=== PATIENT | male | born 1980 | race Caucasian/White ===

== ENCOUNTER 2019-04-03 19:11 | Emergency (ER) | payer OTHER ==
[2019-04-03 19:29] VITALS: TEMP 98.9
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
[2019-04-03 22:04] VITALS: BP 149/76; PULSE 84; RESP 18
== END 2019-04-03 22:03 | disposition home or self-care (01) ==
LOC: EC 19:11
DX: R45.851 Suicidal ideations (principal); F43.21 Adjustment disorder with depressed mood
CPT/HCPCS: 99285

== ENCOUNTER → 2024-07-01 | Outpatient (CLI) | payer OTHER ==
--- NOTE | 2024-07-01 15:40 | US ---
EXAMINATION TYPE: US venous doppler duplex LE DATE OF EXAM: 07/01/2024 3:28 PM COMPARISON: NONE CLINICAL INDICATION: Male, 44 years old with history of R22.42 LOCALIZED SWELLING, MASS AND LUMP, LEF T LOW; Swelling and pain in the legs. Patient does not take blood thinners. No hx of DVT. SIDE PERFORMED: Bilateral TECHNIQUE: The lower extremity deep venous system is examined utilizing real time linear array sonog hank with graded compression, doppler sonography and color-flow sonography. VESSELS IMAGED: Common Femoral Vein Deep Femoral Vein Greater Saphenous Vein * Femoral Vein Popliteal Vein Small Saphenous Vein * Proximal Calf Veins (* superficial vessels) Exam is very limited due to patient body habitus. Right Leg: No evidence of DVT, prox calf veins not well seen Left Leg: No evidence of DVT, prox calf veins not well seen IMPRESSION: [facility]ung, , 07/01/2024 3:38 PM
[2024-07-01 16:02] LABS: ABG PCO2 51 mmHg (35-45); ABG PH 7.39 (7.35-7.45); ABG PO2 62 mmHg (83-108); Allen Test Performed? Yes
[2024-07-01 16:03] LABS: ABG Base Excess 4.4 mmol/L; ABG HCO3 31 mmol/L (21-25); ABG TCO2 32 mmol/L (19-24)
== END | disposition home or self-care (01) ==
LOC: RADUSWWP 14:34
PROVIDERS: ATTEND Internal Medicine
DX: R22.42 Localized swelling, mass and lump, left lower limb (principal); R22.41 Localized swelling, mass and lump, right lower limb; J96.11 Chronic respiratory failure with hypoxia; I27.21 Secondary pulmonary arterial hypertension
CPT/HCPCS: 36600; 82805; 93970

== ENCOUNTER → 2024-07-13 | Outpatient (CLI) | payer OTHER ==
--- NOTE | 2024-07-13 17:59 | CA ---
Transthoracic Echo Report Name: Faustino Escobar Age: 44 Gender: M : 1980 Exam Date: 07/13/2024 13:52 Exam Location: [place] [facility] Ht (in): 77 Wt (lb): 398 Ordering Physician: Mesfin Taylor MD Attending/Referring Phys: Red Leader Phuong Gil RDCS Procedure CPT: Indications: I27.21 pulmonary hypertention Cardiac Hx: Technical Quality: Very technically difficult study Contrast 1: Definity Total Dose (mL): 2 Contrast 2: Total Dose (mL): MEASUREMENTS (Male / Female) Normal Values 2D ECHO LV Diastolic Diameter PLAX 5.7 cm 4.2 - 5.9 / 3.9 - 5.3 cm LV Systolic Diameter PLAX 4.0 cm IVS Diastolic Thickness 1.5 cm 0.6 - 1.0 / 0.6 - 0.9 cm LVPW Diastolic Thickness 1.5 cm 0.6 - 1.0 / 0.6 - 0.9 cm LV Relative Wall Thickness 0.5 RV Internal Dim ED PLAX 2.9 cm LA Volume 74.6 cm??? 18 - 58 / 22 - 52 cm??? LA Volume Index 23.2 cm???/m??? 16 - 28 cm???/m??? M-MODE Aortic Root Diameter MM 3.5 cm LA Systolic Diameter MM 5.0 cm LA Ao Ratio MM 1.4 AV Cusp Separation MM 1.0 cm DOPPLER AV Peak Velocity 118.9 cm/s AV Peak Gradient 5.7 mmHg AV Mean Velocity 89.4 cm/s AV Mean Gradient 3.4 mmHg AV Velocity Time Integral 22.1 cm LVOT Peak Velocity 100.9 cm/s LVOT Peak Gradient 4.1 mmHg LVOT Velocity Time Integral 21.9 cm MV Area PHT 3.4 cm??? Mitral E Point Velocity 45.1 cm/s Mitral A Point Velocity 72.1 cm/s Mitral E to A Ratio 0.6 MV Deceleration Time 220.1 ms MV E' Velocity 6.7 cm/s Mitral E to MV E' Ratio 6.7 FINDINGS Left Ventricle Moderately increased left ventricular wall thickness. Left ventricular cavity size normal. Left ventricle not well visualized. Left ventricular ejection fraction is estimated at 55-60 %. Right Ventricle Right ventricle not well visualized. Appears to be dilated Right Atrium Right atrium not well visualized. Left Atrium Moderately increased left atrial volume. Mitral Valve Mitral valve not well visualized. No mitral stenosis, regurgitation or prolapse. Aortic Valve No aortic valve stenosis or regurgitation. Aortic valve not well visualized. Tricuspid Valve Tricuspid valve not well visualized. Pulmonic Valve Pulmonic valve not well visualized. Pericardium No pericardial effusion. Aorta Normal size aortic root and proximal ascending aorta. CONCLUSIONS Technically difficult study. Definity ECHO contrast used for improved visualization of the endocardial borders (inadequate visualization of two or more contiguous segments). Overall left ventricular systolic function appears to be preserved Very limited Doppler study, no conclusion could be made Previewed by: Dr. Leora Berry MD (Electronically Signed) Final Date: 13 July 2024 17:58
== END | disposition home or self-care (01) ==
LOC: RADECHMAIN 13:15
PROVIDERS: ATTEND Internal Medicine
DX: I27.21 Secondary pulmonary arterial hypertension (principal)
CPT/HCPCS: 93306

== ENCOUNTER → 2024-07-16 | Outpatient (CLI) | payer OTHER ==
--- NOTE | 2024-07-29 22:42 | P.PCN ---
Date of Procedure: 07/16/24 Operative Findings: Home sleep study report Date of service is 07/16/2024 Pertinent history This is a 44-year-old male patient morbidly obese and has history of closed head injury, hypertension, cor pulmonale and anxiety/depression. The patient was suspected of obstructive sleep apnea. Based on that, the patient was given a home sleep study. Pertinent physical findings patient has a body mass index of 59 Technical description The [employer] Ap[employer] system was used to complete his home sleep study. This is a type III home sleep study evaluation. Total recording duration was 6 hours and 24 minutes. The study started at 12:50 PM and ended at 7:35 AM. There was a total of 6 hours and 22 minutes of flow monitoring and 6 hours and 30 minutes of oxygen saturation monitoring. Results Respiratory: The sleep study showed a total of 16 obstructive apneas and a total of 196 obstructive hypopneas resulting into an AHI of 32.4 Oxygenation analysis Multiple episodes of oxygen saturation were counted. Total of 208 episodes of oxygen saturation was counted where the pulse ox dropping more than 4%. Baseline pulse ox while awake was 94%, average pulse ox during sleep was 85% with a minimum pulse ox of 40%. This patient spent approximately 4 hours of treatment pulse ox of 89% Cardiac summary Average heart rate was 75 with a minimum heart rate of 58 and a maximum heart of 124 Assessment Severe symptomatic JIMMY with an AHI of 32.4 Severe nocturnal oxygen desaturation with a minimum pulse ox of 40% Obesity with a BMI of 59 Chronic hypersomnia Cor pulmonale Hypertension Chronic depression/anxiety Plan Proceed with an in lab CPAP titration regarding severe symptomatic JIMMY. Encour age weight loss. Optimize comorbidities. Maintain good sleep hygiene measures. Will follow.
== END | disposition home or self-care (01) ==
LOC: 3 N SLEEP 15:38
PROVIDERS: ATTEND Internal Medicine Critical Care Medicine

== ENCOUNTER 2024-08-25 19:20 | Outpatient (CLI) | payer OTHER ==
--- NOTE | 2024-09-01 00:01 | P.PCN ---
Date of Procedure: 08/25/24 Operative Findings: CPAP titration Date of service is 08/25/2024 History 44-year-old male patient with severe symptomatic JIMMY with an AHI of 32, presenting for a CPAP titration Physical findings Weight is 498 pounds, BMI is 59.1 Technical description The patient was studied using a standard complex polysomnography protocol that included recording of the Lead II EKG, Central, occipital and frontal EEG, right and left outer canthus EOG, submental EMG, right and left anterior tibialis EMG, respiratory airflow by thermocouple and or pressure/flow transducer, respiratory efforts by abdominal and thoracic PVDF belts, oxygen saturation by cable oximetry. Position by observation synchronized the PSG. Equipment used: [email or web address]. Stepwise CPAP titration was done to eliminate all obstructive respiratory events Sleep architecture The total recording duration was 398.5 minutes. The total sleep time was 288.5 minutes. The wake after sleep onset time was 46.5 minutes. Overall sleep efficiency was 72.4%. Latency to sleep onset was 63 minutes. The sleep architecture was categorized by 2.9% stage I, 62.6% stage II, 14.4% stage III and a total of 20.1% REM sleep. The total arousal index was 10.6. Latency to REM sleep was 260 minutes. CPAP titration summary The patient was initially started on CPAP therapy at a pressure of 8 cm of water and the pressure was gradually increased by increments of 1 cm of water to reach a maximum CPAP pressure of 14 cm of water. While in REM sleep, the patient continued to have episodes of obstructive hypopneas. Due to ineffectiveness of CPAP therapy, the patient was switched to a BiPAP and the titration was continued. Initial BiPAP pressure was 16 over 12 cm of water and the maximum BiPAP pressure achieved was 20/16 cm of water. Carefully reviewed the CPAP and a BiPAP titration. BiPAP therapy was more effective in eliminating obstructive respiratory events and maintaining an oxygen saturation above 90% elevated sleep stages and body positions. Oxygenation improved with BiPAP therapy Sleep continuity summary The patient had a total of 51 arousals with an index of 10.6. Respiratory arousal index was 0.4 Periodic limb movement summary The patient had total of 471 periodic movement events/periodic limb movement activity with an index of 98. No arousals associated with limb movements. Cardiac summary Average heart rate was 76 with a minimum heart rate of 69 and the maximal heart rate of 85 Assessment Severe symptomatic JIMMY with an AHI of 32.4. The patient underwent a successful titration. CPAP therapy was ineffective in eliminating obstructive respiratory events and maintaining oxygen saturation above 90%. The patient had a successful BiPAP titration. Severe nocturnal oxygen desaturation improved with BiPAP therapy Obesity with a BMI of 59 Chronic hypersomnia Cor pulmonale Hypertension Chronic depression/anxiety plan Initiate BiPAP therapy and the patient will be started on an EPAP pressure of 10 and a maximum pressure of 20 with a pressure support of 4. The patient will be offered an AirFit F20 fullface mask medium size. Encourage weight loss. Maintain good sleep hygiene measures. Maintain regular sleep schedule. See me back in office in 30 to 90 days to assess clinical response and compliancy.
== END 2024-08-26 07:20 | disposition home or self-care (01) ==
LOC: 3 N SLEEP 19:20
PROVIDERS: ATTEND Internal Medicine Critical Care Medicine
DX: G47.33 Obstructive sleep apnea (adult) (pediatric) (principal); G47.10 Hypersomnia, unspecified; G47.36 Sleep related hypoventilation in conditions classified elsewhere; I10 Essential (primary) hypertension; F41.9 Anxiety disorder, unspecified; F32.A Depression, unspecified; I27.81 Cor pulmonale (chronic); E66.9 Obesity, unspecified; Z68.43 Body mass index [BMI] 50.0-59.9, adult
CPT/HCPCS: 95811

== ENCOUNTER → 2024-11-27 | Outpatient (CLI) | payer OTHER ==
--- NOTE | 2024-11-27 13:02 | US ---
EXAMINATION TYPE: US arterial LE multi level DATE OF EXAM: 11/27/2024 12:49 PM COMPARISONS: None. CLINICAL INDICATION: Male, 44 years old with history of M79.604; M79.605 Pain in both legs; pain in b oth legs after walking TECHNIQUE: Systolic pressures were taken of the upper and lower extremity arteries with ankle-brachia l indices and toe brachial indices calculated bilaterally. History of: Smoker: no Hypertension: yes Diabetic: no Hyperlipidemia: yes TIA/CVA: no Previous Vascular Surgery: no CAD: no NE: no Vascular Ulcers: no Claudication: no Gangrene: no FINDINGS: Doppler Waveforms: Right: Biphasic Left: Biphasic Brachial Artery systolic pressure: Right: 155 Left: 162 Posterior Tibial artery systolic pressure: Right: 177 Left: 171 Dorsalis Pedis artery systolic pressure: Right: 132 Left: 128 Toe artery systolic pressure: Right: n/a Left: n/a Ankle-Brachial Indices: Right: 0.81 Left: 0.83 IMPRESSION: LUIS ALBERTO: Right: Mild Arterial Disease 0.8 - 0.9, Recommendation: None Left: Mild Arterial Disease 0.8 - 0.9, Recommendation: None [facility], , 11/27/2024 12:59 PM
== END | disposition home or self-care (01) ==
LOC: RADUSWWP 12:15
PROVIDERS: ATTEND Family Medicine
DX: I77.9 Disorder of arteries and arterioles, unspecified (principal)
CPT/HCPCS: 93923

== ENCOUNTER → 2025-01-11 | Outpatient (CLI) | payer OTHER ==
[2025-01-11 15:24] LABS: BUN/Creat Ratio 25.45 Ratio (12.00-20.00); Calcium 9.6 mg/dL (8.7-10.3); Carbon Dioxide 29.5 mmol/L (21.6-31.8); Chloride 100 mmol/L (96-109); Glucose 101 mg/dL (70-110); Potassium 5.2 mmol/L (3.5-5.5); Sodium 139 mmol/L (135-145)
[2025-01-11 15:29] LABS: NT-Pro-B-Type Natriuretic Pept 165 pg/mL (0-125)
== END | disposition home or self-care (01) ==
LOC: LABWHC1 09:44
PROVIDERS: ATTEND Internal Medicine Cardiovascular Disease
DX: R60.9 Edema, unspecified (principal)
CPT/HCPCS: 36415; 80048; 83880